=== PATIENT | male | born 1970 | race Two or more races ===

== ENCOUNTER → 2018-09-05 | Outpatient (CLI) | payer OTHER | END | disposition home or self-care (01) | LOC: RAD 09:16 | PROVIDERS: ATTEND Physician Assistant Medical | DX: J34.89 Other specified disorders of nose and nasal sinuses (principal); K05.30 Chronic periodontitis, unspecified; Q30.8 Other congenital malformations of nose; I10 Essential (primary) hypertension | CPT/HCPCS: 70486 ==